=== PATIENT | female | born 1975 | race Caucasian/White ===

== ENCOUNTER → 2016-02-27 | Outpatient (CLI) | payer OTHER ==
[~2016-02-27] MED LIST: IBUP-232 PO; OXYC1TAB63 PO
== END ==
LOC: HPND 10:19
PROVIDERS: ATTEND Obstetrics & Gynecology
DX: O09.522 Supervision of elderly multigravida, second trimester (principal); O09.92 Supervision of high risk pregnancy, unspecified, second trimester; Z3A.25 25 weeks gestation of pregnancy
CPT/HCPCS: 76816; 76817

== ENCOUNTER → 2016-03-26 | Outpatient (CLI) | payer OTHER | LOC: HPND 08:18 | PROVIDERS: ATTEND Obstetrics & Gynecology | DX: O09.523 Supervision of elderly multigravida, third trimester (principal); O09.93 Supervision of high risk pregnancy, unspecified, third trimester | CPT/HCPCS: 76816; 82951 ==

== ENCOUNTER → 2016-04-23 | Outpatient (CLI) | payer OTHER | LOC: HPND 11:05 | PROVIDERS: ATTEND Obstetrics & Gynecology | DX: O09.523 Supervision of elderly multigravida, third trimester (principal); Z3A.33 33 weeks gestation of pregnancy | CPT/HCPCS: 76816 ==

== ENCOUNTER 2016-05-23 17:17 | Inpatient (IN) | payer OTHER ==
[2016-05-23] VITALS (31 sets, daily range): BP systolic 110–143; BP diastolic 58–99; PULSE 71–96; RESP 18–20; TEMP 97–98.6; O2SAT 100
[~2016-05-23] VITALS: Ht 160 cm; Wt 96.2 kg
[~2016-05-23 17:17] MED LIST changes: +DIPHTH/TETANUS/ACEL PERTUSSIS (BOOSTER) 0.5 ML VIAL/PFS IM ONE; -IBUP-232 PO; +MEASLES, MUMPS, RUBELLA VACCINE 0.5 ML VIAL SQ ONE; -OXYC1TAB63 PO
--- NOTE | 2016-05-23 17:57 | PD ---
HPI Chief Complaint Patient's 41-year-old white female 38 weeks complains of contractions and a great increase in pelvic pressure. Loss of mucous plug is several hours ago. Denies ruptured membranes or vaginal bleeding. She sees Dr. Bro for care. Follow tracing is reactive she is ze every 4-5 minutes. He was checked in the office yesterday was 4 cm dilated. Date Seen: May 23, 2016 Travel History International Travel<30 Days: No Contact w/Intl Traveler<30Days: No Known Affected Area: No History of Present Illness HPI Patient is 41-year-old white female at 38 weeks ze. She complains of increased pelvic pressure loss of mucous plug. Denies ruptured membranes or bleeding. heart rate tracing is reactive. Traction noted on the monitor. Para: 5 : 9 History Obstetric History Obstetric History 5 vaginal deliveries several early losses Social History Alcohol Use: No Tobacco Use: No Substance Abuse: No Allergies-Medications (Allergen,Severity, Reaction): Coded Allergies: No Known Allergies (Verified , 07/07/15) Home Meds No Active Prescriptions or Reported Meds Review of Systems General / Constitutional: No: Fever, Weight Gain, Chills, Other Eyes: No: Diploplia, Blurred Vision, Visual changes, Pain, Photophobia HENT: No: Headaches, Vertigo, Lightheadedness Cardiovascular: No: Irregular Rhythm, Chest Pain or Discomfort, Palpitations, Tachycardia, Syncope, Varicosities, Edema, Cyanosis Respiratory: No: Cough, Short of Breath, Other Gastrointestinal: No: Nausea, Vomiting, Diarrhea Genitourinary: No: Decreased Urinary Output, Oliguria Musculoskeletal: No: Limited ROM, Weakness, Cramping, Edema, Pain Skin: No Rash, No Itching, No Dryness, No Lumps, No Change in Pigmentation, No Change in Nails, No Alopecia, No Lesions Neurologic: No: Weakness, Dizziness, Syncope, Focal Abnormalities, Coordination Problem, Headache, Slurred Speech, Seizures Psychiatric: No: Depression, Suicidal Ideations, Homicidal Ideation Endocrine: No: Heat Intolerance, Cold Intolerance, Polydipsia, Polyuria, Other Physical Exam Narrative GENERAL: Well-nourished, well-developed patient. SKIN: Warm and dry. HEAD: Normocephalic and atraumatic. EYES: No scleral icterus. No injection or drainage. ENT: No nasal drainage noted. Mucous membranes pink. Airway patent. NECK: Supple, trachea midline. No JVD. CARDIOVASCULAR: Regular rate and rhythm without murmurs, gallops, or rubs. RESPIRATORY: Breath sounds equal bilaterally. No accessory muscle use. BREASTS: Bilateral exam showed no masses , no retractions, no nipple discharge. ABDOMEN/GI: Abdomen soft, non-tender, bowel sounds present, no rebound, no guarding Gravid to [-38] weeks size Fundal Height: [38-] GENITOURINARY: External Genitalia: intact and normal in appearance BUS glands: [-] Cervix: [-] Dilatation: [-4] Effacement: [60-] Station: [-3] ballotable Presentation: [Vertex-] Membranes: [intact ] Uterine Contractions: [Every 4-5 minutes-] FHT's: Category: [1-] Baseline: [133-] Reactive: [yes-] Variability: [-mod] Decels: [-none] EXTREMITIES: No cyanosis or edema. BACK: Nontender without obvious deformity. No CVA tenderness. NEUROLOGICAL: Awake and alert. Motor and sensory grossly within normal limits. Five out of 5 muscle strength in all muscle groups. Normal speech. MDM Interpretation(s) Patient is a 41-year-old white female at 38 weeks regular contractions no bleeding or leakage of fluid. Heart rate tracing is reactive contractions are noted. Patient's cervix is 4 cm 60% -3 vertex with a ballotable bag. This essentially the same cervix is Dr. Bro checked yesterday in the office. Plan Because the patient is a 9 this is her sixth baby, I discussed with Dr Bro the plan of care and he agreed that she should stay in hospital overnight for observation and if she makes progress obviously should be in labor and deliver her baby if she is the same in the morning and contractions are spaced out he will discuss with her the possibility going home and coming back when contractions are stronger Diagnosis Diagnosis: Primary Impression: False labor after 37 completed weeks of gestation Condition: Good Scripts No Active Prescriptions or Reported Meds Tonny Almeida II, MD May 23, 2016 17:57 Tonny Almeida II, MD May 23, 2016 17:57
[2016-05-23] MEDS ORDERED: ZOLPIDEM TARTRATE 5 MG TAB PO PRN ×2 (18:00→22:45)
[2016-05-23] MEDS ORDERED: oxyCODONE/ACETAMINOPHEN 5 MG/325 MG TAB PO PRN ×2 (18:00→22:45)
[2016-05-23] MEDS ORDERED: ACETAMINOPHEN 325 MG TAB PO PRN ×2 (18:00→22:45)
[2016-05-23] MEDS ORDERED: ONDANSETRON ODT 4 MG TAB PO PRN ×2 (18:00→22:45)
[2016-05-23] MEDS ORDERED: NS 1000 ML IV PRN (20:00)
[2016-05-23] MEDS ORDERED: CITRIC ACID-SODIUM CITRATE LIQ 30 ML UDC PO SCH (20:00)
[2016-05-23] MEDS ORDERED: NS 500 ML BOLUS IV PRN (20:00)
[2016-05-23] MEDS ORDERED: ONDANSETRON HCL 4 MG/2 ML VIAL IV PRN (20:00)
[2016-05-23] MEDS: LACTATED RINGER'S 1000 ML IV SCH ×2 (20:00→20:47)
[2016-05-23] MEDS ORDERED: LIDOCAINE HCL 1% 50 ML VIAL I-DERMAL PRN (20:00)
[2016-05-23] MEDS ORDERED: LIDOCAINE HCL 1% 50 ML VIAL INFIL PRN (20:00)
[2016-05-23] MEDS ORDERED: OXYTOCIN 30 UNITS 500ML PREMIX IV ONE (20:00)
[2016-05-23] MEDS ORDERED: MINERAL OIL 10 ML VIAL TOPICAL PRN (20:00)
[2016-05-23] MEDS ORDERED: PENICILLIN G POT 5,000,000 UNITS/NS 100 ML (Mini-Bag Plus) IV ONE ×2 (20:00)
[2016-05-23] MEDS ORDERED: LACTATED RINGER'S 1000 ML BOLUS IV PRN (20:00)
[2016-05-23 20:07] LABS: HEMATOCRIT 35.7 % (35.0-46.0); MEAN CELL VOLUME 86.5 FL (80.0-100.0); MEAN CORPUSCULAR HEMOGLOBIN 29.2 PG (27.0-34.0); MEAN CORPUSCULAR HGB CONC 33.7 % (32.0-36.0); PLATELET COUNT 247 TH/MM3 (150-450); RED BLOOD COUNT 4.13 MIL/MM3 (4.00-5.30); RED CELL DISTRIBUTION WIDTH 12.1 % (11.6-17.2); WHITE BLOOD COUNT 16.3 TH/MM3 (4.0-11.0)
[2016-05-23 20:09] LABS: HEMO FLAGS AUTO DIFF
[2016-05-23] MEDS ORDERED: fentaNYL 2MCG-BUPIV 0.125% INJ 100 ML ONE (20:15)
[2016-05-23] MEDS ORDERED: ePHEDrine/NS 25 MG/5 ML SYR ONE (20:25)
[2016-05-23 20:33] LABS: BANDS 4 % (0-6); NEUTROPHIL # MANUAL DIFF 9.5 TH/MM3 (1.8-7.7); POLYS (SEG NEUTROPHILS) 54 % (16-70); WBC DIFF SAMPLE 100
[2016-05-23 20:34] LABS: PLATELET ESTIMATE SMEAR NORMAL (NORMAL); PLATELET MORPHOLOGY ENLARGED (NORMAL); SCAN/DIFF FINAL DIFF MANUAL
--- NOTE | 2016-05-23 22:44 | PD.OB.DELI ---
Delivery Date: May 23, 2016 Anesthesia: Epidural Episiotomy: None Vaginal Delivery: Normal Presentation: Occiput anterior Nuchal Cord: None Delayed cord clamping (45 sec): Yes Infant: Female One Minute : 8 Five Minute : 9 Weight: 6/4 Infant Care: Suctioned, Spontaneous crying, Responded to stimulation Placenta: Spontaneous delivery, Intact, Uterus explored +, 3 vessel cord Laceration: No lacerations Additional Information Nice quick delivery of [place]. Dark bloody stained AF. Strip looked good Baby with some breathing issues. EBL was 300cc Jazmine Bro MD May 23, 2016 22:44
[2016-05-23] MEDS ORDERED: WITCH HAZEL 50%/GLYCERIN 12.5% 40 PAD JAR TOPICAL PRN (22:45)
[2016-05-23] MEDS ORDERED: BENZOCAINE 20% TOPICAL SPRAY 60 ML CAN TOPICAL PRN (22:45)
[2016-05-23] MEDS ORDERED: DOCUSATE SODIUM 50 MG/SENNA 8.6 MG TAB PO PRN (22:45)
[2016-05-23] MEDS ORDERED: ALUMINUM/MAGNESIUM/SIMETH 30 ML CUP PO PRN (22:45)
[2016-05-23] MEDS ORDERED: SODIUM CHLORIDE 0.9% FLUSH 10 ML FLUSH IV FLUSH PRN (22:45)
[2016-05-23] MEDS ORDERED: OXYTOCIN 30 UNITS-500ML PREMIX 500 ML IV ONE (22:45)
[2016-05-24] MEDS ORDERED: PENICILLIN G POT 2,500,000 UNITS/NS 100 ML IV SCH ×2
[2016-05-24] MEDS: IBUPROFEN 600 MG TAB PO PRN ×4 (00:05→22:48)
[2016-05-24] MEDS: oxyCODONE/ACETAMINOPHEN 5 MG/325 MG TAB PO PRN ×3 (00:07→22:48)
[2016-05-24] MEDS ORDERED: diphenhydrAMINE HCL 50 MG CAP PO PRN (00:30)
[2016-05-24 01:00] VITALS: BP 105/64; PULSE 76; RESP 18; TEMP 99
[2016-05-24 08:00] VITALS: BP 123/77; PULSE 80; RESP 20; TEMP 98.6
[2016-05-24] MEDS ORDERED: SODIUM CHLORIDE 0.9% FLUSH 10 ML FLUSH IV FLUSH SCH (09:00)
--- NOTE | 2016-05-24 13:52 | HHI.OB ---
Subjective Post Day: 1 Objective Vitals/I&O Vital Signs Date Time Temp Pulse Resp B/P Pulse Ox O2 Delivery O2 Flow Rate FiO2 05/24/16 08:00 98.6 20 05/24/16 08:00 80 123/77 05/24/16 01:00 99.0 18 05/24/16 01:00 76 105/64 05/23/16 23:19 74 119/58 05/23/16 23:15 98.6 05/23/16 23:15 18 05/23/16 23:07 77 123/65 05/23/16 22:30 18 05/23/16 22:00 100 05/23/16 21:55 75 05/23/16 21:55 100 05/23/16 21:46 117/67 05/23/16 21:40 100 05/23/16 21:40 81 05/23/16 21:35 76 05/23/16 21:32 79 115/61 05/23/16 21:30 97.0 05/23/16 21:25 85 05/23/16 21:25 100 05/23/16 21:24 18 05/23/16 21:20 83 05/23/16 21:16 110/70 05/23/16 21:14 18 05/23/16 21:10 100 05/23/16 21:10 88 05/23/16 21:01 78 127/66 05/23/16 20:56 123/58 05/23/16 20:55 100 05/23/16 20:50 84 18 05/23/16 20:46 128/68 05/23/16 20:41 20 05/23/16 20:41 90 05/23/16 20:41 120/72 05/23/16 20:40 100 05/23/16 20:39 84 05/23/16 20:37 143/99 05/23/16 20:28 84 129/96 05/23/16 19:40 97.8 05/23/16 19:39 71 18 131/85 05/23/16 19:25 87 05/23/16 17:55 96 Objective Remarks GENERAL: Well-nourished, well-developed patient. CARDIOVASCULAR: Regular rate and rhythm without murmurs, gallops, or rubs. RESPIRATORY: Breath sounds equal bilaterally. No accessory muscle use. ABDOMEN/GI: Abdomen soft, non-tender. Fundus: Firm, non-tender at umbilicus. GENITOURINARY: Light to moderate bleeding. EXTREMITIES: No cyanosis or edema, non-tender, without signs of DVT. Medications and IVs Current Medications Medications (Trade) Dose Ordered Sig/Joss Route Start Time Stop Time Status Last Admin (NS Flush) 2 ml BID IV FLUSH 05/24/16 09:00 (NS Flush) 2 ml UNSCH PRN IV FLUSH 05/23/16 22:45 (Tylenol) 650 mg Q4H PRN PO 05/23/16 22:45 (Motrin) 600 mg Q6H PRN PO 05/23/16 22:45 05/24/16 13:44 (Percocet 5-325 Mg) 1 tab Q4H PRN PO 05/23/16 22:45 05/24/16 07:39 (Percocet 5-325 Mg) 2 tab Q4H PRN PO 05/23/16 22:45 05/24/16 13:44 (Americaine 20% Top Spr) 1 spray Q4H PRN TOPICAL 05/23/16 22:45 (Tucks Pads) 1 applic QID PRN TOPICAL 05/23/16 22:45 (Shikha-Colace) 2 tab Q12H PRN PO 05/23/16 22:45 (Ambien) 5 mg HS PRN PO 05/23/16 22:45 (Mag-Al Plus Susp Liq) 15 ml Q8H PRN PO 05/23/16 22:45 (Zofran Odt) 4 mg Q6H PRN PO 05/23/16 22:45 (Benadryl) 50 mg Q6H PRN PO 05/24/16 00:30 05/24/16 00:45 Assessment/Plan Problem List: (1) Normal vaginal delivery Plan: ROUTINE Assessment and Plan DAY #1 PT DOING WELL' PAIN WELL CONTROLLED WITH ORAL PAIN MEDICATION ROUTINE CARE Discharge Planning CONSIDER OR HOME TOMORROW Siobhan Nagy May 24, 2016 13:52
--- NOTE | 2016-05-24 14:30 | HHI.DCPOC ---
Discharge Care Plan Diagnosis: (1) Normal vaginal delivery Your Health Problems Are: Vaginal delivery Report Symptoms to Your Doctor -Temperate above 100.5 degrees -Redness, of incision or excessive or foul smelling drainage -Unusual pain or calf pain -Increased vaginal bleeding -Painful or difficulty urinating -Feelings of extreme sadness or anxiety after 2 weeks Goals to Promote Your Health * To prevent worsening of your condition and complications * To maintain your health at the optimal level Directions to Meet Your Goals Take your medications as prescribed Follow your dietary instruction Follow activity as directed Ensure plenty of rest for recovery Drink fluids for hydration Keep your appointments as scheduled Take your immunizations and boosters as scheduled If your symptoms worsen call your PCP, if no PCP go to Urgent Care Center or Emergency Room Smoking is Dangerous to Your Health. Avoid second hand smoke Call the 24-hour crisis hotline for domestic abuse at Siobhan Nagy May 24, 2016 14:30
--- NOTE | 2016-05-24 14:38 | HHI.DS ---
Admission Date May 23, 2016 at 17:53 Discharge Date: May 25, 2016 Admitting Diagnosis TERM LABOR/SROM Diagnosis: (1) Normal vaginal delivery Delivery Date: May 23, 2016 Vaginal Delivery: Normal : Female Brief History Patient is 41-year-old white female at 38 weeks ze. She complains of increased pelvic pressure loss of mucous plug. Denies ruptured membranes or bleeding. heart rate tracing is reactive. Traction noted on the monitor. Hospital Course LABOR SROM ROUTINE Pt Condition on Discharge: Good Discharge Disposition: Discharge Home Discharge Instructions Diet Instructions: As Tolerated, No Restrictions Additional Diet Instructions: Drink at least 8 - 16 oz bottles of water a day Activities You Can Perform: Shower Only-No Bath, Sitz Bath Activities to Avoid: Lifting/Bending, Sexual Activity Additional Activity Instruc.: No driving until off pain medications Do not lift anything heavier than your baby in an carrier Follow up Referrals: FOOD QUALITY TESTER - 2 Weeks @ [facility] New Medications: Ibuprofen (Ibuprofen) 600 Mg Tab 600 MG PO Q6H Pain Management #30 Ref 1 TAB Oxycodone-Acetaminophen (Oxycodone-Acetaminophen) 5-325 mg Tab 1 TAB PO Q4H moderate pain #20 TAB Siobhan Nagy May 24, 2016 14:38
[2016-05-24 19:00] VITALS: BP 112/58; PULSE 81; RESP 20; TEMP 97.9
[2016-05-25] MEDS: IBUPROFEN 600 MG TAB PO PRN ×2 (05:32→11:33)
[2016-05-25] MEDS: oxyCODONE/ACETAMINOPHEN 5 MG/325 MG TAB PO PRN ×2 (05:32→11:34)
[2016-05-25] MEDS ORDERED: OXYC1TAB63 PO (07:13)
[2016-05-25] MEDS ORDERED: IBUP-232 PO (07:13)
[2016-05-25 07:45] VITALS: BP 140/79; PULSE 68; RESP 18; TEMP 98
--- NOTE | 2016-05-25 12:02 | HHI.OB ---
Subjective Post Day: 2 Objective Vitals/I&O Vital Signs Date Time Temp Pulse Resp B/P Pulse Ox O2 Delivery O2 Flow Rate FiO2 05/25/16 07:45 98.0 68 18 140/79 05/24/16 19:00 97.9 81 20 112/58 Objective Remarks GENERAL: Well-nourished, well-developed patient. CARDIOVASCULAR: Regular rate and rhythm without murmurs, gallops, or rubs. RESPIRATORY: Breath sounds equal bilaterally. No accessory muscle use. ABDOMEN/GI: Abdomen soft, non-tender. Fundus: Firm, non-tender at umbilicus. GENITOURINARY: Light to moderate bleeding. EXTREMITIES: No cyanosis or edema, non-tender, without signs of DVT. Medications and IVs Current Medications Medications (Trade) Dose Ordered Sig/Joss Route Start Time Stop Time Status Last Admin (NS Flush) 2 ml BID IV FLUSH 05/24/16 09:00 (NS Flush) 2 ml UNSCH PRN IV FLUSH 05/23/16 22:45 (Tylenol) 650 mg Q4H PRN PO 05/23/16 22:45 (Motrin) 600 mg Q6H PRN PO 05/23/16 22:45 05/25/16 11:33 (Percocet 5-325 Mg) 1 tab Q4H PRN PO 05/23/16 22:45 05/24/16 07:39 (Percocet 5-325 Mg) 2 tab Q4H PRN PO 05/23/16 22:45 05/25/16 11:34 (Americaine 20% Top Spr) 1 spray Q4H PRN TOPICAL 05/23/16 22:45 (Tucks Pads) 1 applic QID PRN TOPICAL 05/23/16 22:45 (Shikha-Colace) 2 tab Q12H PRN PO 05/23/16 22:45 05/25/16 11:33 (Ambien) 5 mg HS PRN PO 05/23/16 22:45 (Mag-Al Plus Susp Liq) 15 ml Q8H PRN PO 05/23/16 22:45 (Zofran Odt) 4 mg Q6H PRN PO 05/23/16 22:45 (Benadryl) 50 mg Q6H PRN PO 05/24/16 00:30 05/24/16 00:45 Assessment/Plan Problem List: (1) Normal vaginal delivery Plan: ROUTINE Assessment and Plan DAY #2 PT DOING WELL' PAIN WELL MANAGED WITH ORAL PAIN MEDICATION ROUTINE CARE Discharge Planning RI HOME TODAY Siobhan Nagy May 25, 2016 12:02
== END 2016-05-25 18:09 | disposition home or self-care (01) | DRG 775 ==
LOC: HOBED 17:17 → H2EA 17:53 → OBSVTOIN 17:53 → H2EB 19:33 → H1EA 05-24 00:29
PROVIDERS: ADMIT Obstetrics & Gynecology; ATTEND Obstetrics & Gynecology
PROC: 10E0XZZ Delivery of Products of Conception, External Approach (ICD-10-PCS; principal; 2016-05-23)
PROC: 00HU33Z Insertion of Infusion Device into Spinal Canal, Percutaneous Approach (ICD-10-PCS; 2016-05-23)
PROC: 3E0R3CZ (ICD-10-PCS; 2016-05-23)
DX: O99.824 Streptococcus B carrier state complicating childbirth (principal); O09.523 Supervision of elderly multigravida, third trimester; Z37.0 Single live birth; Z3A.38 38 weeks gestation of pregnancy
CPT/HCPCS: 76818; 85007; 85027; 86850; 86900; 86901; 88307; 90715; 99285; J2540; J2590; J3010; J7120; Q0163

== ENCOUNTER → 2016-10-02 | Outpatient (CLI) | payer OTHER ==
[~2016-10-02] MED LIST changes: -DIPHTH/TETANUS/ACEL PERTUSSIS (BOOSTER) 0.5 ML VIAL/PFS IM ONE; +IBUP-232 PO; -MEASLES, MUMPS, RUBELLA VACCINE 0.5 ML VIAL SQ ONE; +OXYC1TAB63 PO
== END ==
LOC: HPND 10:49
PROVIDERS: ATTEND Obstetrics & Gynecology
DX: O09.521 Supervision of elderly multigravida, first trimester (principal); O09.41 Supervision of pregnancy with grand multiparity, first trimester; O26.21 Pregnancy care for patient with recurrent pregnancy loss, first trimester
CPT/HCPCS: 76801; 76802

== ENCOUNTER → 2016-10-09 | Outpatient (CLI) | payer OTHER | LOC: HPND 12:57 | PROVIDERS: ATTEND Obstetrics & Gynecology | DX: O09.521 Supervision of elderly multigravida, first trimester (principal); O30.001 Twin pregnancy, unspecified number of placenta and unspecified number of amniotic sacs, first trimester; O20.8 Other hemorrhage in early pregnancy | CPT/HCPCS: 76815 ==

== ENCOUNTER → 2016-10-31 | Outpatient (CLI) | payer OTHER | LOC: HPND 08:09 | PROVIDERS: ATTEND Obstetrics & Gynecology | DX: O09.521 Supervision of elderly multigravida, first trimester (principal); O30.001 Twin pregnancy, unspecified number of placenta and unspecified number of amniotic sacs, first trimester; O09.41 Supervision of pregnancy with grand multiparity, first trimester; O26.21 Pregnancy care for patient with recurrent pregnancy loss, first trimester | CPT/HCPCS: 36415; 76813; 76814 ==

== ENCOUNTER → 2016-11-28 | Outpatient (CLI) | payer OTHER | LOC: HPND 07:50 | PROVIDERS: ATTEND Obstetrics & Gynecology | DX: O09.522 Supervision of elderly multigravida, second trimester (principal); O30.042 Twin pregnancy, dichorionic/diamniotic, second trimester | CPT/HCPCS: 76811; 76812; 76817 ==

== ENCOUNTER → 2016-12-19 | Outpatient (CLI) | payer OTHER | LOC: HPND 07:35 | PROVIDERS: ATTEND Obstetrics & Gynecology | DX: O09.522 Supervision of elderly multigravida, second trimester (principal); O30.042 Twin pregnancy, dichorionic/diamniotic, second trimester | CPT/HCPCS: 76816; 76817 ==

== ENCOUNTER → 2017-01-18 | Outpatient (CLI) | payer OTHER | LOC: HPND 09:32 | PROVIDERS: ATTEND Obstetrics & Gynecology | DX: O30.042 Twin pregnancy, dichorionic/diamniotic, second trimester (principal); O09.522 Supervision of elderly multigravida, second trimester | CPT/HCPCS: 76816; 76817 ==

== ENCOUNTER 2017-01-22 07:11 | Inpatient (IN) | payer OTHER ==
[2017-01-22] VITALS (14 sets, daily range): BP systolic 88–128; BP diastolic 31–80; PULSE 71–106; RESP 18–19; TEMP 97.6–98.4; O2SAT 100
[~2017-01-22] VITALS: Ht 162.6 cm; Wt 95.3 kg
[2017-01-22] MEDS ORDERED: MAGNESIUM SULFATE 40 GM PREMIX 1,000 ML ONE (08:27)
[2017-01-22] MEDS ORDERED: MAGNESIUM SULFATE 4 GM PREMIX 100 ML ONE (08:27)
[2017-01-22] MEDS ORDERED: LACTATED RINGER'S 1000 ML INJ 1,000 ML IV ONE (08:30)
[2017-01-22] MEDS ORDERED: LACTATED RINGER'S 1000 ML INJ 1,000 ML IV SCH ×2 (08:30→13:00)
[2017-01-22] MEDS ORDERED: SODIUM CHLORIDE 0.9% FLUSH 10 ML FLUSH IV FLUSH PRN (08:30)
[2017-01-22] MEDS ORDERED: CALCIUM GLUCONATE 10% 1 GM/10 ML VIAL IV PUSH PRN (08:30)
[2017-01-22 08:32] LABS: AUTOMATED NEUTROPHIL # 10.2 TH/MM3 (1.8-7.7); BASOPHIL % 0.2 % (0.0-2.0); EOSINOPHIL % 0.4 % (0.0-4.0); HEMATOCRIT 37.7 % (35.0-46.0); HEMO FLAGS DIFF FINAL; LYMPH % 10.8 % (9.0-44.0); LYMPHOCYTE # 1.3 TH/MM3 (1.0-4.8); MEAN CELL VOLUME 89.5 FL (80.0-100.0); MEAN CORPUSCULAR HEMOGLOBIN 29.9 PG (27.0-34.0); MEAN CORPUSCULAR HGB CONC 33.4 % (32.0-36.0); MONO % 4.1 % (0.0-8.0); NEUT % 84.5 % (16.0-70.0); PLATELET COUNT 253 TH/MM3 (150-450); RED BLOOD COUNT 4.21 MIL/MM3 (4.00-5.30); RED CELL DISTRIBUTION WIDTH 13.2 % (11.6-17.2); WHITE BLOOD COUNT 12.1 TH/MM3 (4.0-11.0)
--- NOTE | 2017-01-22 08:32 | HHI.HP ---
HPI Chief Complaint Contractions passage of mucous plug with bloody show and the pressure Date Seen: Jan 22, 2017 Time Seen: 08:00 Travel History International Travel<30 Days: No Contact w/Intl Traveler<30Days: No Known Affected Area: No History of Present Illness HPI 41-year-old white female at 24-[address] dunn for care she has twins and complains of increased pelvic pressure passage of the bloody show mucus this morning and contractions, heart rate tracings are reactive for 24-25 weeks contractions seen on the monitor however the patient was examined and found to be 7-8 cm dilated 80% and -3 babies are vertex breech presentation by ultrasound Weeks Gestation: 24 Para: 6 : 9 Last Menstrual Period: Jan 22, 2017 History Obstetric History Obstetric History 6 vaginal deliveries at term, 2 early losses Social History Narrative Social History Patient is a nurse in the emergency room Alcohol Use: No Tobacco Use: No Substance Abuse: No Allergies-Medications (Allergen,Severity, Reaction): Coded Allergies: No Known Allergies (Verified Allergy, Unknown, 01/22/17) Home Meds Active Scripts Oxycodone-Acetaminophen (Oxycodone-Acetaminophen) 5-325 mg Tab, 1 TAB PO Q4H for moderate pain, #20 TAB Prov:Jazmine Bro MD 05/25/16 Ibuprofen (Ibuprofen) 600 Mg Tab, 600 MG PO Q6H for Pain Management, #30 TAB 1 Refill Prov:Jazmine Bro MD 05/25/16 Review of Systems General / Constitutional: No: Fever, Weight Gain, Chills, Other Eyes: No: Diploplia, Blurred Vision, Visual changes, Pain, Photophobia HENT: No: Headaches, Vertigo, Lightheadedness Cardiovascular: No: Irregular Rhythm, Chest Pain or Discomfort, Palpitations, Tachycardia, Syncope, Varicosities, Edema, Cyanosis Respiratory: No: Cough, Short of Breath, Other Gastrointestinal: Abdominal Pain, No: Nausea, Vomiting, Diarrhea Genitourinary: No: Decreased Urinary Output, Oliguria Musculoskeletal: No: Limited ROM, Weakness, Cramping, Edema, Pain Skin: No Rash, No Itching, No Dryness, No Lumps, No Change in Pigmentation, No Change in Nails, No Alopecia, No Lesions Neurologic: No: Weakness, Dizziness, Syncope, Focal Abnormalities, Coordination Problem, Headache, Slurred Speech, Seizures Psychiatric: No: Depression, Suicidal Ideations, Homicidal Ideation Endocrine: No: Heat Intolerance, Cold Intolerance, Polydipsia, Polyuria, Other Physical Exam Narrative GENERAL: Well-nourished, well-developed patient. SKIN: Warm and dry. HEAD: Normocephalic and atraumatic. EYES: No scleral icterus. No injection or drainage. ENT: No nasal drainage noted. Mucous membranes pink. Airway patent. NECK: Supple, trachea midline. No JVD. CARDIOVASCULAR: Regular rate and rhythm without murmurs, gallops, or rubs. RESPIRATORY: Breath sounds equal bilaterally. No accessory muscle use. BREASTS: Bilateral exam showed no masses , no retractions, no nipple discharge. ABDOMEN/GI: Abdomen soft, non-tender, bowel sounds present, no rebound, no guarding Gravid to [-35] weeks size Fundal Height: [35 cm twin gest-] GENITOURINARY: External Genitalia: intact and normal in appearance BUS glands: [-] Cervix: [-] Dilatation: [7-] Effacement: [-80] Station: [-3 floating] Presentation: [vtx/breech-] Membranes: [intact ] Uterine Contractions: [irreg-] FHT's: 130s/130s EXTREMITIES: No cyanosis or edema. BACK: Nontender without obvious deformity. No CVA tenderness. NEUROLOGICAL: Awake and alert. Motor and sensory grossly within normal limits. Five out of 5 muscle strength in all muscle groups. Normal speech. Caprini VTE Risk Assessment Caprini VTE Risk Assessment: No/Low Risk (score <= 1) Caprini Risk Assessment Model Point Value = 1 Point Value = 2 Point Value = 3 Point Value = 5 Age 41-60 Minor surgery BMI > 25 kg/m2 Swollen legs Varicose veins or History of unexplained or recurrent spontaneous Oral contraceptives or hormone replacement Sepsis (< 1 month) Serious lung disease, including pneumonia (< 1 month) Abnormal pulmonary function Acute myocardial infarction Congestive heart failure (< 1 month) History of inflammatory bowel disease Medical patient at bed rest Age 61-74 Arthroscopic surgery Major open surgery (> 45 min) Laparoscopic surgery (> 45 min) Malignancy Confined to bed (> 72 hours) Immobilizing plaster cast Central venous access Age >= 75 History of VTE Family history of VTE Factor V Leiden Prothrombin [id number] Lupus anticoagulant Anticardiolipin antibodies Elevated serum homocysteine Heparin-induced thrombocytopenia Other congenital or acquired thrombophilia Stroke (< 1 month) Elective arthroplasty Hip, pelvis, or leg fracture Acute spinal cord injury (< 1 month) Prophylaxis Regimen Total Risk Factor Score Risk Level Prophylaxis Regimen 0-1 Low Early ambulation 2 Moderate Order ONE of the following: *Sequential Compression Device (SCD) *Heparin 5000 units SQ BID 3-4 Higher Order ONE of the following medications: *Heparin 5000 units SQ TID *Enoxaparin/Lovenox 40 mg SQ daily (WT < 150 kg, CrCl > 30 mL/min) *Enoxaparin/Lovenox 30 mg SQ daily (WT < 150 kg, CrCl > 10-29 mL/min) *Enoxaparin/Lovenox 30 mg SQ BID (WT < 150 kg, CrCl > 30 mL/min) AND/OR *Sequential Compression Device (SCD) 5 or more Highest Order ONE of the following medications: *Heparin 5000 units SQ TID (Preferred with Epidurals) *Enoxaparin/Lovenox 40 mg SQ daily (WT < 150 kg, CrCl > 30 mL/min) *Enoxaparin/Lovenox 30 mg SQ daily (WT < 150 kg, CrCl > 10-29 mL/min) *Enoxaparin/Lovenox 30 mg SQ BID (WT < 150 kg, CrCl > 30 mL/min) AND *Sequential Compression Device (SCD) Data Data Orders Orders Vital Signs (Adult) .ON ADMISSION (01/22/17 07:55) ^ Labor Status (01/22/17 07:55) Urinalysis - C+S If Indicated (01/22/17 07:55) Fibronectin (01/22/17 07:55) Ob (2e) Additional Admit Info (01/22/17 08:08) Fentanyl Inj (Fentanyl Inj) (01/22/17 08:11) Admit To Inpatient (01/22/17 ) Vital Signs (Adult) .ON ADMISSION (01/22/17 08:20) Activity Oob Ad Jayde (01/22/17 08:20) Heart (01/22/17 08:20) Urinary Catheter Management LYSSA.Q8H (01/22/17 08:20) ^ Preps (01/22/17 08:20) Scd / Al / Foot Pump LYSSA.QSHIFT (01/22/17 08:20) ^ Ultrasound For Locatio (01/22/17 08:20) Diet Npo (01/22/17 Breakfast) Lactated Ringer's 1000 Ml Inj (Lr 1000 M (01/22/17 08:20) Lactated Ringer's 1000 Ml Inj (Lr 1000 M (01/22/17 08:50) Cefazolin 2 Gm Premix (Ancef 2 Gm Premix (01/22/17 09:30) Citric Acid-Sodium Citrate Liq (Bicitra (01/22/17 10:00) Type And Screen (01/22/17 08:20) Complete Blood Count With Diff (01/22/17 08:20) Drug Screen, Random Urine (01/22/17 08:20) Specimen To Be Collected PRN (01/22/17 08:20) Labs Bedside ultrasound shows of twin gestation vertex breech, baby A is 572 g 23 weeks 2 day size// baby B 534 g 23 weeks 1 day size Assessment/Plan Assessment and Plan Patient is a 41-year-old white female twin gestation at 24-25 weeks presents in labor, she's had passage of bloody show mucus with pressure and pain. Cervix is 7 cm dilated 80% and -3 with floating presenting parts and intact membranes, ultrasound showed baby is in a vertex breech presentation with babies at 572 g and 534 g respectively Impression labor and twin gestation at 24-25 weeks with advanced cervical dilation, baby is in a vertex breech presentation Plan-admit, IV magnesium sulfate for tocolyse and neuro protective effect, IM betamethasone, IV antibiotics, and will deliver when necessary, patient has no further cervical change and seems stable over the next few hours potentially can transfer to [facility] where better outcome is noted for baby s in the 500 g range Tonny Almeida II, MD Jan 22, 2017 08:32
[2017-01-22 08:48] LABS: BACTERIA, URINE RARE /hpf; BLOOD, URINE NEG (NEG); COMMENT (UR) CULT NOT INDICATED; CULTURE IF INDICATED CULT NOT INDICATED; GLUCOSE,URINE NEG (NEG); KETONE, URINE 10 mg/dL (NEG); MUCUS URINE FEW /lpf (OCC); NITRITE,URINE NEG (NEG); SQUAMOUS EPITHELIAL CELL URINE 1 /hpf (0-5); URINE COLOR YELLOW (YELLW/STRAW)
[2017-01-22] MEDS: MAGNESIUM SULFATE 40 GM PREMIX 1,000 ML IV SCH (08:54)
--- NOTE | 2017-01-22 08:57 | MH ---
cc: [facility] DATE OF ADMISSION 01/22/2017 ADMISSION DIAGNOSIS Twin at 24 weeks with labor, advanced maternal age. HISTORY OF PRESENT ILLNESS The patient is a 41-year-old white female para 6-0-3-6 with an LMP of 08/01/2016, EDC of 05/08/2017. Her course has been benign with normal first TM screen and normal panoramic testing. Her last ultrasound last week had shown appropriate growth, normal fluid, cervical length of 3.6 cm. She developed pelvic pressure and contractions last evening with spotting and presented this morning at 08:00 a.m.. She was seen by Dr. Almeida while I was in surgery, the hospitalist, and is about 6 cm intact. Ultrasound at the bedside shows vertex breech. Assessment is twin at 24 weeks with labor and advanced dilation. PAST MEDICAL HISTORY Previous surgery, in 2012, she had breast augmentation, abdominoplasty, thigh lift. MEDICATIONS Medications are: 1. Vitamins 2. Zoloft 3. Xanax for anxiety and depression. OBSTETRICAL HISTORY She has had six vaginal deliveries and three spontaneous abortions. SOCIAL HISTORY She is an ER nurse at [employer]. Alcohol, tobacco and drugs are none. FAMILY HISTORY Her family history is noncontributory. PHYSICAL EXAM This is a gravid white female in no distress. HEENT: Exam was normal. CHEST: Her chest is clear. BREASTS: The breasts are symmetrical. ABDOMEN: Gravid and nontender. PELVIC: Cervix is about 6, thickish, vertex is ballottable and intact. EXTREMITIES: Normal. RECTAL: Deferred. ASSESSMENT I have discussed the seriousness of her situation. Would recommend we try magnesium sulfate therapy to try and halt labor and give her steroids. If we are successful at stopping the labor, we would like to transfer her to a level III facility [address] Dr. Almeida will help me coordinate that during the day. Should she have membrane rupture or progress in labor, we would need to proceed with delivery and I explained the babies are at a very severe prematurity, the chance of compromise and is very high. She understands and agrees to proceed. MD ARIAN Mathis/SAGAR /8:36 AM 8:48 AM
[2017-01-22] MEDS ORDERED: ONDANSETRON HCL 4 MG/2 ML VIAL IV PUSH PRN (09:00)
[2017-01-22] MEDS ORDERED: BETAMETHASONE SOD PHOS/ACETATE SUSP 30 MG/5 ML VIAL IM SCH (09:00)
[2017-01-22] MEDS: SODIUM CHLORIDE 0.9% FLUSH 10 ML FLUSH IV FLUSH SCH ×2 (09:00→21:29)
[2017-01-22] MEDS ORDERED: PENICILLIN G POTASSIUM INJ 5,000,000 UNITS in SODIUM CHLORIDE 0.9% INJ 100 ML IV SCH (09:00)
[2017-01-22] MEDS ORDERED: MAGNESIUM SULFATE 4 GM PREMIX 100 ML IV ONE (09:00)
[2017-01-22] MEDS ORDERED: oxyCODONE/ACETAMINOPHEN 5 MG/325 MG TAB PO PRN ×2 (09:15)
[2017-01-22] MEDS ORDERED: OXYTOCIN 30 UNITS-500ML PREMIX 500 ML IV ONE (09:15)
[2017-01-22] MEDS ORDERED: KETOROLAC TROMETHAMINE 60 MG/2 ML (IM) VIAL IM PRN ×2 (09:15)
[2017-01-22] MEDS ORDERED: DOCUSATE SODIUM 50 MG/SENNA 8.6 MG TAB PO PRN (09:15)
[2017-01-22] MEDS ORDERED: SIMETHICONE 80 MG CHEWABLE TAB PO PRN (09:15)
[2017-01-22] MEDS ORDERED: ONDANSETRON HCL 4 MG/2 ML VIAL IVP PRN (09:15)
[2017-01-22] MEDS ORDERED: ZOLPIDEM TARTRATE 5 MG TAB PO PRN (09:15)
[2017-01-22] MEDS ORDERED: ceFAZolin 2 GM PREMIX 50 ML IV SCH (09:30)
[2017-01-22] MEDS ORDERED: CITRIC ACID-SODIUM CITRATE LIQ 30 ML UDC PO SCH (10:00)
[2017-01-22] MEDS ORDERED: MEASLES, MUMPS, RUBELLA VACCINE 0.5 ML VIAL SQ ONE (10:45)
[2017-01-22] MEDS: ACETAMINOPHEN 1000 MG/100 ML VIAL IV SCH ×2 (12:46→19:00)
[2017-01-22] MEDS ORDERED: EPIDURAL-NO SYSTEMIC NARCOTICS PRN (13:45)
[2017-01-22] MEDS ORDERED: EPIDURAL-DIPHENHYDRAMINE HCL 50 MG CAP PO PRN (13:45)
[2017-01-22] MEDS ORDERED: EPIDURAL-NALOXONE HCL 0.4 MG/ML AMP IV PUSH PRN (13:45)
[2017-01-22] MEDS ORDERED: EPIDURAL-DIPHENHYDRAMINE HCL 50 MG/ML VIAL IV PUSH PRN (13:45)
[2017-01-22] MEDS ORDERED: EPIDURAL-DO NOT ADMINISTER ANTICOAGULANTS PRN (13:45)
[2017-01-22] MEDS ORDERED: OXYTOCIN 30 UNITS-500ML PREMIX 500 ML IV PRN (18:15)
--- NOTE | 2017-01-22 21:16 | MP ---
cc: CHEO LOWERY DATE OF SURGERY: 01/22/2017 PREOPERATIVE DIAGNOSIS: Twin at 24 weeks, active labor, PROM, advanced maternal age, multiparity. POSTOPERATIVE DIAGNOSIS: 1. Twin at 24 weeks, active labor, PROM, advanced maternal age, multiparity. 2. Delivered. PROCEDURE: Primary section and bilateral tubal interruption. ANESTHESIA Spinal SURGEON Cheo Lowery MD INSURANCE HEALTHCARE CONSULTANT: NAVEED Reynolds ESTIMATED BLOOD LOSS: About 1000 cc FLUIDS: 1.3 liters crystalloid. OBJECTIVE FINDINGS Following the induction of adequate spinal anesthesia the patient opened through a Pfannenstiel incision using knife to cut down skin to the fascia. Fascia opened transversely and stripped from the midline sharply due to the previous abdominoplasty. The peritoneum opened sharply. The lower segment was not well-developed, bladder flap was taken down. The uterus was entered in the midline low. There was anterior placenta and incision had to be extended with bandage scissors to get up and over this placenta, and in doing so, opened the upper sac. The first delivery was a female footling breech. Mouth was suctioned, cord clamped and cut and the baby passed to the team, a vigorous female, weighing 590 grams, Apgars 8 and 9. The B sac was now encountered and ruptured. It was also footling breech as well as the A baby. Baby delivered. Mouth suctioned, cord clamped and cut the baby passed to the team, a male. Apgars 5 and 7, weight 630 grams. The placenta was now manually removed. The uterine cavity cleaned with laps. The uterus exteriorized. The first layer was closed with a running locking stitch of 0 Vicryl from the superior part of the wound down to the lower segment and then a similar stitch was taken from the lower segment up to the isthmic region. Two additional layers of sutures were placed, 0 Vicryl interrupted fashion to close the uterus from top to bottom. When complete, the patient reaffirmed desire of her tubal. The left fallopian tube was traced to the ovary. A window was made in the mesosalpinx. The vascular pedicle of fimbria was doubly clamped with Kellys, distal tube, with a single hemostat. The distal tube was further excised for permanent study. The vascular pedicle of fimbria was ligated with two free ties of 2-0 chromic. The proximal tube was ligated with 2-0 chromic, and buried in the uterine fundus in Michele fashion. A second suture used to further affix the tube to the uterine fundus. The exact same procedure was repeated on the right side. Posterior inspection was normal. Uterus placed in the cavity. Irrigation was performed. No bleeding was evident. Bladder flap was closed with running stitch of 3-0 Vicryl. Laps and retractors were removed. Counts were correct. The anterior peritoneum closed with 2-0 Vicryl. The fascia with a running locking stitch of 0 Vicryl corner to midline tied with the muscles dusted with [place] for hemostasis. Subcu was closed with running 3-0 Vicryl, skin with running subcuticular 3-0 Monocryl. Dermabond applied. All counts were correct and the patient was awakened and taken to the Recovery Room. MD ARIAN Mathis/CATHY /8:25 PM /8:44 PM CHRISTIANE
[2017-01-22] MEDS: LACTATED RINGER'S 1000 ML INJ 1,000 ML IV SCH (22:20)
[2017-01-23] MEDS: PENICILLIN G POTASSIUM INJ 2,500,000 UNITS in SODIUM CHLORIDE 0.9% INJ 100 ML IV SCH ×2 (00:22→03:54)
[2017-01-23] MEDS: IBUPROFEN 600 MG TAB PO PRN ×2 (01:06→07:10)
[2017-01-23 01:10] VITALS: BP 109/65; PULSE 67; RESP 18; TEMP 98.3
[2017-01-23] MEDS: ACETAMINOPHEN 1000 MG/100 ML VIAL IV SCH (03:00)
[2017-01-23] MEDS: MAGNESIUM SULFATE 40 GM PREMIX 1,000 ML IV SCH (03:54)
[2017-01-23] MEDS: LACTATED RINGER'S 1000 ML INJ 1,000 ML IV SCH (03:54)
[2017-01-23 04:55] VITALS: BP 80/50; PULSE 70; RESP 16; TEMP 98.3
[2017-01-23 05:59] LABS: AUTOMATED NEUTROPHIL # 15.9 TH/MM3 (1.8-7.7); BASOPHIL # 0.1 TH/MM3 (0-0.2); BASOPHIL % 0.5 % (0.0-2.0); HEMO FLAGS DIFF FINAL; LYMPHOCYTE # 1.5 TH/MM3 (1.0-4.8); MEAN CORPUSCULAR HEMOGLOBIN 29.5 PG (27.0-34.0); MEAN CORPUSCULAR HGB CONC 33.1 % (32.0-36.0); MONO % 5.9 % (0.0-8.0); NEUT % 85.6 % (16.0-70.0); PLATELET COUNT 214 TH/MM3 (150-450); RED BLOOD COUNT 3.03 MIL/MM3 (4.00-5.30); WHITE BLOOD COUNT 18.6 TH/MM3 (4.0-11.0)
[2017-01-23 06:17] LABS: BICARBONATE 26.1 MEQ/L (21.0-32.0); POTASSIUM 3.9 MEQ/L (3.5-5.1)
--- NOTE | 2017-01-23 07:16 | HHI.DCPOC ---
Discharge Care Plan Report Symptoms to Your Doctor -Temperature above 100.5 degrees -Redness, of incision or excessive or foul smelling drainage -Unusual pain or calf pain -Increased vaginal bleeding -Painful or difficulty urinating -Feelings of extreme sadness or anxiety after 2 weeks Goals to Promote Your Health * To prevent worsening of your condition and complications * To maintain your health at the optimal level Directions to Meet Your Goals Take your medications as prescribed Follow your dietary instruction Follow activity as directed Ensure plenty of rest for recovery Drink fluids for hydration Keep your appointments as scheduled Take your immunizations and boosters as scheduled If your symptoms worsen call your PCP, if no PCP go to Urgent Care Center or Emergency Room Smoking is Dangerous to Your Health. Avoid second hand smoke Call the 24-hour crisis hotline for domestic abuse at Jamel Jackson MD Jan 23, 2017 07:16
[2017-01-23] MEDS ORDERED: DIPHTH/TETANUS/ACEL PERTUSSIS (BOOSTER) 0.5 ML VIAL/PFS IM ONE (07:45)
[2017-01-23] MEDS ORDERED: INFLUENZA VIRUS VACCINE (QUADRIVALENT) 0.5 ML SYR IM ONE (07:45)
[2017-01-23 08:30] VITALS: BP 95/63; PULSE 69; RESP 20; TEMP 97.9
--- NOTE | 2017-01-23 12:54 | MD ---
cc: CHEO LOWERY MD ADMISSION DATE: 01/22/2017 DISCHARGE DATE: 01/23/2017 ADMISSION DIAGNOSIS 1. Twin 24 weeks with active labor. 2. Advanced maternal age. DISCHARGE DIAGNOSIS 1. Twin 24 weeks with active labor. 2. Advanced maternal age. 3. Delivered HISTORY OF PRESENT ILLNESS The patient is a 41-year-old white female para 6-0-3-6 with a known twin with EDC of 05/08/2017. Her course was benign. Her first TM and self pre-DNA testing was normal. Her ultrasound showed appropriate growth, normal fluid and normal presentation. She had developed cramping, pelvic pressure and spotting on the evening of 01/21/2017 and presented to the central unit on the morning of 01/22/2017 at approximately 08:00 a.m. She was found to be 6 cm dilated intact. She was promptly placed on magnesium sulfate therapy, given a dose of steroids IM and IV penicillin in hopes of delaying delivery. She then had spontaneous rupture of membranes which progressed to dilation and underwent a primary class local type with delivery of a viable twin . The A baby was a footling breech female 590 grams, 's 8 and 9, B baby was a footling breech male, 's 5 and 7, weight 630 grams. Post the mom did well. She requests discharge on the first day to go to [facility] where the babies were being kept at [facility]. She was advised NPV, light activity, no driving, return to see me in one week. Should she have abnormal pain, bleeding, temperature, signs infection, depression, wound infection, she is to go to the ED there were [facility] For evaluation. If well, return to see me in one week. She will continue her routine meds at home, was given a script for Percocet 5 one to two p.o. q.4 h. #60 and Xanax 0.5 mg p.o. t.i.d. for anxiety #60, refill zero. MD ARIAN Mathis/SAGAR /7:21 AM /12:42 PM
[2017-01-25 08:01] LABS: BATH SALTS (MDPV) UR NEG (NEG); ECSTASY (MDMA) UR NEG (NEG); HEROIN (6-ACETYLMORPHINE) UR NEG (NEG); K2 SPICE UR NEG (NEG); OBGABAPENTIN UR NEG (NEG); OBHYDROMORPHONE U NEG (NEG); OBMETHADONE UR NEG (NEG); PHENCYCLIDINE URINE NEG (NEG)
== END 2017-01-23 09:48 | disposition home or self-care (01) | DRG 765 ==
LOC: HOBED 07:11 → H2EB 08:09 → H1EA 18:26
PROVIDERS: ADMIT Obstetrics & Gynecology; ATTEND Obstetrics & Gynecology
PROC: 10D00Z1 Extraction of Products of Conception, Low, Open Approach (ICD-10-PCS; principal; 2017-01-22)
PROC: 0UB70ZZ Excision of Bilateral Fallopian Tubes, Open Approach (ICD-10-PCS; 2017-01-22)
DX: O60.12X1 Preterm labor second trimester with preterm delivery second trimester, fetus 1 (principal); O30.002 Twin pregnancy, unspecified number of placenta and unspecified number of amniotic sacs, second trimester; O60.12X2 Preterm labor second trimester with preterm delivery second trimester, fetus 2; Z37.2 Twins, both liveborn; O32.1XX1 Maternal care for breech presentation, fetus 1; O32.1XX2 Maternal care for breech presentation, fetus 2; O42.912 Preterm premature rupture of membranes, unspecified as to length of time between rupture and onset of labor, second trimester; Z3A.24 24 weeks gestation of pregnancy; Z30.2 Encounter for sterilization; Z23 Encounter for immunization
CPT/HCPCS: 76815; 80048; 80307; 81001; 84112; 85025; 86850; 86900; 86901; 88302; 88305; 88307; 90686; 90715; G0481; J0131; J0690; J0702; J2405; J3010; J3475; J7120; Q2038